=== PATIENT | male | born 1960 | race Hispanic/Latino ===

== ENCOUNTER 2017-01-09 13:20 | Emergency (ER) | payer BC ==
[2017-01-09 13:34] VITALS: RESP 16
--- NOTE | 2017-01-09 14:54 | C.PDOC ---
History Of Present Illness 56-year-old male, presents to the emergency department with complaints of inability to void since 04:00 this morning. Patient states he has a Hx of similar in the past, about two years ago. Denies hematuria, nausea/vomiting, fevers or chills. No other complaints at this time. Time Seen by Provider: 01/09/17 14:07 Chief Complaint (Nursing): Male Genitourinary History Per: Patient History/Exam Limitations: no limitations Onset/Duration Of Symptoms: Hrs Current Symptoms Are (Timing): Still Present Severity: Moderate Past Medical History Reviewed: Historical Data, Nursing Documentation, Vital Signs Vital Signs: Last Vital Signs Temp 98.5 F 01/09/17 13:31 Pulse 80 01/09/17 13:31 Resp 16 01/09/17 13:31 BP 155/84 H 01/09/17 13:31 Pulse Ox 96 01/09/17 14:54 - Medical History PMH: Benign Prostatic Hyperplasia Family History: States: No Known Family Hx - Social History Hx Alcohol Use: Yes Hx Substance Use: No - Immunization History Hx Tetanus Toxoid Vaccination: No Hx Influenza Vaccination: No Hx Pneumococcal Vaccination: No Review Of Systems Except As Marked, All Systems Reviewed And Found Negative. Constitutional: Negative for: Fever, Chills Cardiovascular: Negative for: Chest Pain Respiratory: Negative for: Shortness of Breath Gastrointestinal: Negative for: Nausea, Vomiting Genitourinary: Negative for: Hematuria Physical Exam - Physical Exam Appears: Non-toxic, No Acute Distress Skin: Warm, Dry, No Rash Head: Atraumatic, Normacephalic Eye(s): bilateral: Normal Inspection, PERRL Nose: Normal Oral Mucosa: Moist Neck: Normal ROM Gastrointestinal/Abdominal: Soft, No Tenderness, Other (post carranza insertion by RN) Extremity: Normal ROM ED Course And Treatment O2 Sat by Pulse Oximetry: 96 Medical Decision Making Medical Decision Making: Impression 56y/o M w/ inability to void Plan: * Bladder scan * Urine Culture * UA * Reassess and Disposition Progress: Carranza cath inserted by RN, and approx 1L oif urine obtained. Patient notes immediate relief. He will be discharged for outpatient f/u withUrology in 1-2 days. Patient advised to leave carranza inserted until eval by urologist. He expresses understanding. All questions answered. Disposition Counseled Patient/Family Regarding: Studies Performed, Diagnosis, Need For Followup - Disposition Referrals: Shola Medley MD [Staff Provider] - Disposition: HOME/ ROUTINE Disposition Time: 14:54 Condition: IMPROVED Instructions: Urinary Retention in Men (ED), Urinary Leg Bag (GEN) - Clinical Impression Clinical Impression: Acute urinary retention - Scribe Statement The provider has reviewed the documentation as recorded by the Scribe (David Fung) All medical record entries made by the Scribe were at my direction and personally dictated by me. I have reviewed the chart and agree that the record accurately reflects my personal performance of the history, physical exam, medical decision making, and the department course for this patient. I have also personally directed, reviewed, and agree with the discharge instructions and disposition.
[2017-01-09 14:57] LABS: SQUAMOUS EPITHIAL 1 /hpf (0-5); URINE BILIRUBIN NEGATIVE (NEGATIVE); URINE BLOOD 3+ (NEGATIVE); URINE CLARITY Hazy (Clear); URINE COLOR Yellow (YELLOW); URINE GLUCOSE (UA) NORMAL (Normal); URINE LEUKOCYTE ESTERASE NEG Leu/uL (Negative); URINE NITRATE NEGATIVE (NEGATIVE); URINE PROTEIN NEGATIVE (NEGATIVE); URINE UROBILINOGEN NORMAL mg/dL (0.2-1.0)
[2017-01-09 15:26] VITALS: BP 149/82; PULSE 68; TEMP 98.2; O2SAT 99
== END 2017-01-09 15:25 | disposition home or self-care (01) ==
LOC: C.ER 13:20
DX: R33.8 Other retention of urine (principal)

== ENCOUNTER 2017-01-11 06:07 | Emergency (ER) | payer BC ==
--- NOTE | 2017-01-11 07:21 | C.PDOC ---
History Of Present Illness 56M c/o urinary retention. he came here sat night after a alliance party w retention, had carranza placed. followed up w urology yesterday- removed carranza for voiding trial but unable to urinate overnight. RN placed carranza w output over 900ml before my eval. upon my eval the pt feels much better. Time Seen by Provider: 01/11/17 07:12 Chief Complaint (Nursing): Male Genitourinary Past Medical History Vital Signs: Last Vital Signs Temp 97.9 F 01/11/17 06:17 Pulse 102 H 01/11/17 06:17 Resp 16 01/11/17 06:17 BP 114/83 01/11/17 06:17 Pulse Ox 97 01/11/17 09:04 - Medical History PMH: Benign Prostatic Hyperplasia Surgical History: Tonsillectomy Family History: States: Other Other Family History: nc - Social History Hx Alcohol Use: Yes Hx Substance Use: No - Immunization History Hx Tetanus Toxoid Vaccination: No Hx Influenza Vaccination: No Hx Pneumococcal Vaccination: No Review Of Systems Constitutional: Negative for: Fever, Malaise Cardiovascular: Negative for: Chest Pain Respiratory: Negative for: Cough, Shortness of Breath Gastrointestinal: Negative for: Nausea, Vomiting, Abdominal Pain Genitourinary: Negative for: Dysuria Physical Exam - Physical Exam Appears: Well, Non-toxic, No Acute Distress Skin: Warm, Dry Head: Atraumatic Oral Mucosa: Moist Cardiovascular: Rhythm Regular Respiratory: No Decreased Breath Sounds, No Accessory Muscle Use Gastrointestinal/Abdominal: Soft, No Tenderness Male Genital: Other (carranza in place draining clear yellow urine) Neurological/Psych: Oriented x3, Other (no focal deficits) ED Course And Treatment O2 Sat by Pulse Oximetry: 97 - CT Scan/US CT - Abd & Pelvis Other Rad Studies (CT/US): Read By Radiologist, Radiology Report Reviewed CT/US Interpretation: PROCEDURE: CT abdomen and pelvis 01/11/2017. HISTORY: Urinary y retention. COMPARISON: No prior. TECHNIQUE: Contiguous axial images of the abdomen and pelvis. Oral contrast was administered. No IV contrast given. Coronal and Sagittal reformats generated. Radiation dose: Total exam DLP = 463.08 mGy-cm. This CT exam was performed using one or more of the following dose reduction techniques: Automated exposure control, adjustment of the mA and/or kV according to patient size, and/or use of iterative reconstruction technique. . FINDINGS: LOWER THORAX: Lung bases are clear. No infiltrate effusion or basilar pneumothorax. Some minimal linear atelectasis or scarring changes both lung bases. Tiny hiatal hernia. Slight wall thickening of the distal esophagus may be due to protrusion of gastric mucosa. Possibility of esophagitis not excluded. LIVER: Liver exhibits normal size measuring approximately 16.3 cm in CC dimension. No hepatic mass collection or calcification. GALLBLADDER AND BILE DUCTS: Unremarkable without obvious intraluminal gallbladder calculi. PANCREAS: Unremarkable. No mass. No ductal dilatation. SPLEEN: Spleen is mildly enlarged measuring just over 13 cm in CC dimension. No splenic mass collection or calcification. ADRENALS: No adrenal lesions. KIDNEYS AND URETERS: No evidence of nephrolithiasis or hydronephrosis. There is a small approximately 10.5 mm rounded low-attenuation focus anterior cortical margin midpole right kidney consistent with a small cyst. BLADDER: Urinary bladder is collapsed about an in situ Carranza catheter and therefore evaluation of the urinary bladder is limited. Small amount of air is present within the urinary bladder felt be secondary to recent instrumentation. REPRODUCTIVE: Prostate gland is markedly enlarged measuring approximately 6.4 cm in transverse dimension. This is likely due to BPH however correlation with PSA recommended. APPENDIX: What is felt to represent the normal partially air-filled retrocecal appendix best seen on axial image number [id number]. Rule. BOWEL: Evaluation of the bowel is limited due to the lack of oral contrast material. Stomach is incompletely distended which presumably accounts for slight thick-walled appearance. Visualized loops of small bowel exhibit normal contour and caliber. No evidence acute mechanical small bowel obstruction. . Moderate amount of stool seen throughout the cecum and ascending and to a lesser degree transverse colon consistent with mild fecal retention/constipation. PERITONEUM: . . No fluid collection. No free air. Small fat containing bilateral inguinal hernias left larger than right. There is also small fat containing umbilical hernia. LYMPH NODES: Unremarkable. No enlarged lymph nodes. VASCULATURE: Unremarkable. No aortic aneurysm. BONES: No acute compression fractures nor retropulsed fragments. Mild multilevel degenerative spondylosis. There is also a mild dextroscoliosis centered at the L2-L3 level. OTHER FINDINGS: None. IMPRESSION: Enlarged prostate gland likely due to BPH however correlation with PSA recommended. In situ Carranza catheter with a small amount of air in the urinary bladder felt to be is secondary to recent instrumentation. Suspect small amount cyst at anterior cortex mid pole right kidney. Spleen is mildly enlarged. Medical Decision Making Medical Decision Making: Dr Medley saw the pt in the ED- rec CT and then home and f/u in his office. Disposition - Disposition Disposition: HOME/ ROUTINE Disposition Time: 09:22 Condition: IMPROVED - Clinical Impression Clinical Impression: Acute urinary retention
[2017-01-11 07:48] LABS: URINE BILIRUBIN NEGATIVE (NEGATIVE); URINE BLOOD 2+ (NEGATIVE); URINE CLARITY Clear (Clear); URINE COLOR Yellow (YELLOW); URINE GLUCOSE (UA) NORMAL (Normal); URINE LEUKOCYTE ESTERASE NEG Leu/uL (Negative); URINE NITRATE NEGATIVE (NEGATIVE); URINE PROTEIN NEGATIVE (NEGATIVE); URINE UROBILINOGEN NORMAL mg/dL (0.2-1.0)
--- NOTE | 2017-01-11 09:01 | CT ---
PROCEDURE: CT abdomen and pelvis 01/11/2017 HISTORY: Urinary y retention COMPARISON: No prior TECHNIQUE: Contiguous axial images of the abdomen and pelvis. Oral contrast was administered. No IV contrast given. Coronal and Sagittal reformats generated. Radiation dose: Total exam DLP = 463.08 mGy-cm. This CT exam was performed using one or more of the following dose reduction techniques: Automated exposure control, adjustment of the mA and/or kV according to patient size, and/or use of iterative reconstruction technique. . FINDINGS: LOWER THORAX: Lung bases are clear. No infiltrate effusion or basilar pneumothorax. Some minimal linear atelectasis or scarring changes both lung bases. Tiny hiatal hernia. Slight wall thickening of the distal esophagus may be due to protrusion of gastric mucosa. Possibility of esophagitis not excluded. LIVER: Liver exhibits normal size measuring approximately 16.3 cm in CC dimension. No hepatic mass collection or calcification. GALLBLADDER AND BILE DUCTS: Unremarkable without obvious intraluminal gallbladder calculi PANCREAS: Unremarkable. No mass. No ductal dilatation. SPLEEN: Spleen is mildly enlarged measuring just over 13 cm in CC dimension. No splenic mass collection or calcification. ADRENALS: No adrenal lesions. KIDNEYS AND URETERS: No evidence of nephrolithiasis or hydronephrosis. There is a small approximately 10.5 mm rounded low-attenuation focus anterior cortical margin midpole right kidney consistent with a small cyst BLADDER: Urinary bladder is collapsed about an in situ Cm catheter and therefore evaluation of the urinary bladder is limited. Small amount of air is present within the urinary bladder felt be secondary to recent instrumentation. REPRODUCTIVE: Prostate gland is markedly enlarged measuring approximately 6.4 cm in transverse dimension. This is likely due to BPH however correlation with PSA recommended. APPENDIX: What is felt to represent the normal partially air-filled retrocecal appendix best seen on axial image number [id number]. Rule BOWEL: Evaluation of the bowel is limited due to the lack of oral contrast material. Stomach is incompletely distended which presumably accounts for slight thick-walled appearance. Visualized loops of small bowel exhibit normal contour and caliber. No evidence acute mechanical small bowel obstruction. . Moderate amount of stool seen throughout the cecum and ascending and to a lesser degree transverse colon consistent with mild fecal retention/constipation. PERITONEUM: . . No fluid collection. No free air. Small fat containing bilateral inguinal hernias left larger than right. There is also small fat containing umbilical hernia. LYMPH NODES: Unremarkable. No enlarged lymph nodes. VASCULATURE: Unremarkable. No aortic aneurysm. BONES: No acute compression fractures nor retropulsed fragments. Mild multilevel degenerative spondylosis. There is also a mild dextroscoliosis centered at the L2-L3 level. OTHER FINDINGS: None. IMPRESSION: Enlarged prostate gland likely due to BPH however correlation with PSA recommended. In situ Cm catheter with a small amount of air in the urinary bladder felt to be is secondary to recent instrumentation. Suspect small amount cyst at anterior cortex mid pole right kidney Spleen is mildly enlarged.
[2017-01-11 09:40] VITALS: BP 124/88; PULSE 82; RESP 17; TEMP 98.1; O2SAT 99
--- NOTE | 2017-02-14 13:13 | CON ---
DATE: 01/11/2017 REASON FOR CONSULTATION: Urinary retention, gross hematuria. HISTORY OF PRESENT ILLNESS: Mr. Kelley is a pleasant gentleman who has recently started having episodes of recurrent urinary retention, voiding dysfunction. The patient has also had been seen through the office. We have been giving voiding trials. He is now in the emergency room for urinary retention. PAST MEDICAL/SURGICAL HISTORY: As listed in the chart, otherwise unremarkable. REVIEW OF SYSTEMS: As listed above. PHYSICAL EXAMINATION: GENERAL: A well-nourished male, in no apparent distress. VITAL SIGNS: Noted. DIAGNOSES: 1. Cm catheter is now in place. 2. Urinary retention, voiding dysfunction, gross hematuria. PLAN: As follows, maintain Cm catheter and discuss further options. We will discuss with the patient that he has some baseline voiding dysfunction and this is relatively new in onset, but with no obvious cause. We will discuss the options and explain to the patient the risks, benefits different options. Medical therapy, surgical therapy, etc., to be discussed and further plans as an outpatient management. Sky Medley MD
== END 2017-01-11 09:53 | disposition home or self-care (01) ==
LOC: C.ER 06:07
DX: R33.8 Other retention of urine (principal); R39.198 Other difficulties with micturition; R31.0 Gross hematuria

== ENCOUNTER 2017-01-13 11:23 | Emergency (ER) | payer BC ==
[2017-01-13 11:28] VITALS: RESP 20; O2SAT 98
--- NOTE | 2017-01-13 11:55 | C.PDOC ---
History Of Present Illness 56-year-old male, presents to the emergency department with complaints of recurring urinary retention and urgency since this morning. Patient s/p TURP 7/ . Patient states leg bag "was draining in trickles." (+)clots, Patient was advised by Dr Medley to self DC walker this morning. Patient removed it at 07:30 , but has bot urinated since. States this feels similar to last urinary retention. CO RECUR URINARY RETENTION, URGENCY SINCE THIS MORNING. S/P TURP 7/. PS LEG BAG "WAS DRAINING IN TRICKLES", +CLOTS. WAS ADVISED BY DR MEDLEY TO SELF DC WALKER THIS MORNING. REMOVED @ 0730 BUT HAS NOT URINATED SINCE. PS FEELS SIM TO LAST URINARY RETENTION. EXAM MILD DIST NONTOXIC ABD +SUPRAPUB TEND MILD SOFT NO R/G Chief Complaint (Nursing): Male Genitourinary History Per: Patient History/Exam Limitations: no limitations Onset/Duration Of Symptoms: Hrs Current Symptoms Are (Timing): Still Present Severity: Moderate Past Medical History Reviewed: Historical Data, Nursing Documentation, Vital Signs Vital Signs: Last Vital Signs Temp 98.8 F 01/13/17 13:25 Pulse 66 01/13/17 13:25 Resp 20 01/13/17 13:25 BP 96/64 L 01/13/17 13:25 Pulse Ox 98 01/13/17 13:25 - Medical History PMH: Benign Prostatic Hyperplasia Surgical History: Tonsillectomy Family History: States: No Known Family Hx - Social History Hx Alcohol Use: Yes Hx Substance Use: No - Immunization History Hx Tetanus Toxoid Vaccination: No Hx Influenza Vaccination: No Hx Pneumococcal Vaccination: No Review Of Systems Except As Marked, All Systems Reviewed And Found Negative. Constitutional: Negative for: Fever Cardiovascular: Negative for: Chest Pain, Palpitations Respiratory: Negative for: Cough, Shortness of Breath Gastrointestinal: Negative for: Nausea, Vomiting Genitourinary: Positive for: Other (urgency and retention) Musculoskeletal: Negative for: Back Pain Skin: Negative for: Rash Neurological: Negative for: Weakness, Numbness, Headache, Dizziness Physical Exam - Physical Exam Appears: Non-toxic, No Acute Distress Skin: Warm, Dry, No Rash Head: Atraumatic, Normacephalic Eye(s): bilateral: Normal Inspection, PERRL Nose: Normal Oral Mucosa: Moist Lips: Normal Appearing Neck: Normal ROM Cardiovascular: Rhythm Regular, No Murmur Respiratory: Normal Breath Sounds, No Accessory Muscle Use Gastrointestinal/Abdominal: Soft, Tenderness (suprapubic), No Guarding, No Rebound Extremity: Normal ROM Neurological/Psych: Oriented x3, Normal Speech ED Course And Treatment O2 Sat by Pulse Oximetry: 98 Progress - Re-Evaluation Re-evaluation Note: 01/13/17 11:49 D/W DR Stevo MEDLEY AWARE OF ER FINDINGS AND AGREES W MGMT PLAN 01/13/17 13:33 co recur urinary urgency. walker draining wo diff. ps not given abx since procedure. will dc w abx, fu gu - Data Reviewed Data Reviewed: Old records Disposition Counseled Patient/Family Regarding: Diagnosis, Need For Followup - Disposition Referrals: Shola Medley MD [Staff Provider] - Disposition: HOME/ ROUTINE Disposition Time: 13:33 Condition: IMPROVED Instructions: Urinary Retention in Men (ED) Forms: Work Excuse - Clinical Impression Clinical Impression: Acute urinary retention - Scribe Statement The provider has reviewed the documentation as recorded by the Scribe (David Fung) All medical record entries made by the Scribe were at my direction and personally dictated by me. I have reviewed the chart and agree that the record accurately reflects my personal performance of the history, physical exam, medical decision making, and the department course for this patient. I have also personally directed, reviewed, and agree with the discharge instructions and disposition.
[2017-01-13 13:25] VITALS: BP 96/64; PULSE 66; TEMP 98.8
[2017-01-13 14:04] LABS: URINE BACTERIA RARE (<OCC); URINE BILIRUBIN NEGATIVE (NEGATIVE); URINE BLOOD 3+ (NEGATIVE); URINE CLARITY Hazy (Clear); URINE COLOR Yellow (YELLOW); URINE GLUCOSE (UA) NORMAL (Normal); URINE LEUKOCYTE ESTERASE NEG Leu/uL (Negative); URINE NITRATE NEGATIVE (NEGATIVE); URINE PROTEIN 2+ mg/dL (NEGATIVE); URINE UROBILINOGEN NORMAL mg/dL (0.2-1.0)
== END 2017-01-13 14:00 | disposition home or self-care (01) ==
LOC: C.ER 11:23
DX: R33.8 Other retention of urine (principal)

== ENCOUNTER 2017-01-18 06:17 | Emergency (ER) | payer BC ==
[2017-01-18 06:28] VITALS: BP 120/72; PULSE 82; RESP 16; TEMP 98.4; O2SAT 97
--- NOTE | 2017-01-18 06:45 | C.PDOC ---
History Of Present Illness pt presents with urinary retention. Has ahd a carranza removed yesterday and started on flomax Time Seen by Provider: 01/18/17 06:42 Chief Complaint (Nursing): Male Genitourinary History Per: Patient History/Exam Limitations: no limitations Onset/Duration Of Symptoms: Hrs Current Symptoms Are (Timing): Worse Severity: Severe Pain Scale Rating Of: 7 Quality Of Discomfort: Pressure Associated Symptoms: denies: Fever, Chills Alleviating Factors: None Recent travel outside of the [place]: No Additional History Per: Patient Past Medical History Reviewed: Historical Data, Nursing Documentation, Vital Signs Vital Signs: Last Vital Signs Temp 98.4 F 01/18/17 06:25 Pulse 82 01/18/17 06:25 Resp 16 01/18/17 06:25 BP 120/72 01/18/17 06:25 Pulse Ox 97 01/18/17 06:25 - Medical History PMH: Benign Prostatic Hyperplasia Surgical History: Tonsillectomy Family History: States: No Known Family Hx - Social History Hx Alcohol Use: Yes Hx Substance Use: No - Immunization History Hx Tetanus Toxoid Vaccination: No Hx Influenza Vaccination: No Hx Pneumococcal Vaccination: No Review Of Systems Constitutional: Negative for: Fever, Chills Cardiovascular: Negative for: Chest Pain Respiratory: Negative for: Shortness of Breath Gastrointestinal: Positive for: Abdominal Pain. Negative for: Nausea, Vomiting Genitourinary: Positive for: Other (retention) Skin: Negative for: Rash Neurological: Negative for: Weakness Psych: Negative for: Anxiety Physical Exam - Physical Exam Appears: Non-toxic, In Acute Distress Skin: Warm, Dry Gastrointestinal/Abdominal: Soft, Tenderness (suprapubic) Back: Normal Inspection Male Genital: Normal Inspection, Circumcised ED Course And Treatment O2 Sat by Pulse Oximetry: 97 Pulse Ox Interpretation: Normal Progress Note: placed 18 fr carranza without any difficulty. Aprox 800 cc of clear urine drained, with instant relief for the pt Reevaluation Time: 06:46 Reassessment Condition: Improved Disposition Counseled Patient/Family Regarding: Studies Performed, Diagnosis, Need For Followup - Disposition Referrals: Shola Medley MD [Staff Provider] - Disposition: HOME/ ROUTINE Disposition Time: 06:46 Condition: FAIR Instructions: Urinary Retention in Men (ED), Carranza Catheter Placement and Care (ED), Urinary Leg Bag (GEN) - Clinical Impression Clinical Impression: Acute urinary retention
== END 2017-01-18 06:53 | disposition home or self-care (01) ==
LOC: C.ER 06:17
DX: N40.1 Benign prostatic hyperplasia with lower urinary tract symptoms (principal); R33.8 Other retention of urine

== ENCOUNTER 2018-07-20 08:36 | Outpatient (CLI) | payer BC | END 2018-07-20 08:37 | disposition home or self-care (01) | LOC: C.CTH 08:36 | DX: R31.9 Hematuria, unspecified (principal); N21.0 Calculus in bladder; N28.1 Cyst of kidney, acquired; K86.9 Disease of pancreas, unspecified ==

== ENCOUNTER 2018-08-01 11:02 | Day surgery (SDC) | payer BC ==
[2018-07-31 08:19] VITALS: BMI 28.8
[2018-08-01] MEDS ORDERED: cefTRIAXone 1 gm 1 GM/100 ML BAG IVPB ONE (14:36)
[2018-08-01] MEDS ORDERED: Propofol 10 mg/ml Inj (20 ML) ONE ×2 (14:39→14:52)
[2018-08-01] MEDS ORDERED: Midazolam 2 MG/2 ML VIAL ONE (14:44)
[2018-08-01] MEDS ORDERED: HYDROmorphone 0.5 mg/0.5 ml ISec IVP PRN (15:49)
[2018-08-01] MEDS ORDERED: Oxycodone/Acetaminophen 5/325 mg Tab PO PRN (16:48)
[2018-08-01 17:42] VITALS: TEMP 98
[2018-08-01 17:58] VITALS: BP 121/81; PULSE 84; RESP 9; O2SAT 97
--- NOTE | 2018-08-03 11:16 | CARD ---
APPROVED REPORT Date of service: 08/01/2018 EKG Measurement Heart [id number] <Conclusion> Sinus bradycardia Otherwise normal ECG
--- NOTE | 2018-08-15 05:47 | OP ---
PROCEDURE DATE: 08/01/2018 PREOPERATIVE DIAGNOSES: Hematuria, voiding dysfunction, recurrent episodes of gross hematuria, gross hematuria with no evidence of malignancy. POSTOPERATIVE DIAGNOSES: Hematuria, voiding dysfunction, recurrent episodes of gross hematuria, , gross hematuria with no evidence of malignancy. PROCEDURE: Transurethral resection of prostate, small volume. See below. COMPLICATIONS: There were no complications. INDICATIONS FOR THE PROCEDURE: Are as follows. BLOOD LOSS: Less than 10 mL. OPERATIVE FINDINGS: 1. Normal anterior urethra. No strictures. Verumontanum is visually occlusive. 2. Particularly mostly at bladder neck, we took an older tissue. We only resected by about 15 g of tissue. 3. In an effort to keep this to a minimal and perhaps not interrupted ejaculatory dysfunction. I discussed this with him at length. At the termination, wide open and there is no complication. At the termination, when we took out the cystoscope, we took out the resectoscope, the patient is nicely wide open. INDICATIONS: See history and physical for further details. The patient is a very pleasant gentleman who has significant voiding dysfunction. He is here now for the above procedure. DESCRIPTION OF PROCEDURE: After obtaining informed consent, the patient was placed on the table. Routine monitors were placed. Time-out was called to confirm the patient and positioning, etc. Time-out was called. Antibiotic prophylaxis used. We introduced the urethra continuous carefully the anterior motion is normal. No strictures from the verumontanum. particularly we worked near the bladder neck. This gentleman had . We continuously, meticulously and carefully. We identified all landmarks. Ureteral orifice was cut back. At this point, . We identified the landmark. We identified a rear view. He has previous . Now we set up the electrocautery. We set up settings at 180 and 80. We will begun between 5 and 7 and then we worked away 7 to 11, 5 to 1. With meticulously, carefully, gently. Each section we resected carefully and make a routine hemostasis all along the away. Although the patient tolerated the procedure well without complication, at the termination it is wide open, the verumontanum is grossly intact. and after return of all the water and it is irrigating well. We turned off all the brito, no bleeding sites. Overall, the patient tolerated the procedure without complications. We put a 2-way Cm catheter with a moderate amount of retraction. Brought the patient to recovery room in stable condition, having tolerated the procedure well without complication. ADDENDUM: We see how he is doing and subsequently going home. Discharge home versus staying in the hospital. Further plans will follow. Sky Medley MD
--- NOTE | 2018-08-15 05:51 | HP ---
UROLOGY ADMISSION HISTORY AND PHYSICAL REASON FOR ADMISSION: Being admitted for TURP. HISTORY OF PRESENT ILLNESS: A very pleasant gentleman who is actually fairly young gentleman to have such an extensive urologic history. But at that point last year, we actually did a workup for his prostate. He felt much better. Again because of he is so young, we try doing minimal amount. He was interested in concerned after the fact. He is currently being admitted to the hospital for further testings and treatments. What we know is the present of irritative and obstructive complaints, decreased force of stream, nocturia and irritative and obstructive complaints. We multiple testings and pathologies in the leg. MEDICATIONS: See the chart. ALLERGIES: SEE THE CHART. 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 As I mentioned too pleasant and enjoyable to talk to. See below my plans and recommendations. He is currently a nonsmoker and essentially otherwise unremarkable. REVIEW OF SYSTEMS: Listed above. PHYSICAL EXAMINATION: GENERAL: A well-nourished male, in no apparent distress. VITAL SIGNS: Within normal limits, included in the chart. LUNGS: Clear. HEART: Normal S1, S2. ABDOMEN: Relatively soft, nontender. No flank masses appreciated. No evidence of rebound or guarding otherwise. GENITOURINARY: He has a normal phallus. No testicular mass appreciated. RECTAL: A 25 g prostate relatively young man. He is less than 60 years old, but otherwise unremarkable. DIAGNOSES: Voiding dysfunction, decreased force of stream, irritative and obstructive complaints, no malignancy. on the chart. We discussed the options at this point. I would also like to get a little tissue pathology, so we will plan to resect some tissue, not just a GreenLight laser, but actually resection of tissue. After discussing various options with the patient, risks, benefits, and alternatives, specifically the risk of ejaculatory dysfunction. This is a great concern, but most likely we explained that this going to be outcome. 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 We are going to plan to proceed. So, the plan for today as follows: 1. We are going to give the patient antibiotic prophylaxis. 2. We are going to do cystoscopy. 3. We are going to plan for TURP with electrocautery, not laser. 4. We get pathology and then will check further plans. Risks and benefits were discussed with the patient at length. We are going to plan to proceed. Sky Medley MD
== END 2018-08-01 18:36 | disposition home or self-care (01) ==
LOC: C.SDS 11:02
PROVIDERS: ATTEND Urology
DX: N21.0 Calculus in bladder (principal); R31.0 Gross hematuria
CPT/HCPCS: 52601; 88305; 88342; 93005; J0696

== ENCOUNTER 2018-10-19 08:40 | Outpatient (CLI) | payer BC | END 2018-10-19 08:41 | disposition home or self-care (01) | LOC: C.LAB 08:40 | DX: Z01.818 Encounter for other preprocedural examination (principal) ==